=== PATIENT | male | born 1970 | race Caucasian/White ===

== ENCOUNTER 2025-05-26 15:08 | Emergency (ER) | payer MEDICAID, OTHER ==
[~2025-05-26] VITALS: Ht 177.8 cm; Wt 92.0 kg
--- NOTE | 2025-05-26 15:48 | ECG ---
[facility] Test Date: 2025-05-26 Test Time: 15:28:45 Pat Name: KRISH GUERRIER Department: ER Room: Gender: M Sales Account Manager: CHANTELL : 1970 Requested By: GIGI PAYNE Order Number: [id number] Reading MD: Measurements Intervals [place] Rate: 56 P: 9 CA: 138 QRS: 50 QRSD: 91 T: 40 QT: 445 QTc: 430 Interpretive Statements Sinus rhythm Please click the below link to view image of tracing.
--- NOTE | 2025-05-26 15:54 | ED.PDOC ---
History of Present Illness HPI Comments 55-year-old male presents with a chief complaint of heat exposure. Patient is experiencing generalized weakness, fatigue, nausea and vomiting. Patient reports that he was doing yard work and mentions that he had "a few beers last night as well". Patient is nauseated, but is not actively vomiting at this time. Patient is able to ambulate, but is choosing to use a wheelchair at this time. No other symptoms or modifying factors present at this time. Patient was hypertensive and bradycardic at arrival. Chief Complaint: Heat Exposure Time Seen by MD: 15:42 Reviewed Notes: Nurses Notes, Medications, Allergies Allergies: Coded Allergies: NO KNOWN ALLERGIES (Unverified , 05/26/25) Information Source: Patient Mode of Arrival: Ambulatory Severity: Moderate Timing: Hours Duration: Since onset Prehospital treatment: None Past Medical History PAST MEDICAL HISTORY: HTN, Denies Surgical History: Denies all surgeries Family History Family History: Reviewed,noncontributory to illness Social History Smoker: Non-Smoker Alcohol: Denies ETOH Use Drugs: Denies Drug Use Lives In: Home Constitutional: reports: fatigue, weakness; denies: chills, diaphoresis, fever, malaise, sweats, others EENTM: denies: blurred vision, double vision, ear bleeding, ear discharge, ear drainage, ear pain, ear ringing, eye pain, eye redness, hearing loss, mouth pa in, mouth swelling, nasal discharge, nose bleeding, nose congestion, nose pain, photophobia, tearing, throat pain, throat swelling, voice changes, others Respiratory: denies: cough, hemoptysis, orthopnea, SOB at rest, shortness of breath, SOB with excertion, stridor, wheezing, others Cardiovascular: denies: chest pain, dizzy spells, diaphoresis, Dyspnea on exertion, edema, irregular heart beat, left arm pain, lightheadedness, palpitations, PND, syncope, others Gastrointestinal: reports: abdominal pain, nausea, vomiting; denies: abdomen distended, blood streaked bowels, constipated, diarrhea, dysphagia, difficulty swallowing, hematemesis, melena, poor appetite, poor fluid intake, rectal bleeding, rectal pain, others Genitourinary: denies: burning, dysuria, flank pain, frequency, hematuria, incontinence, penile discharge, penile sore, pain, testicle pain, testicle swelling, urgency, others Neurological: denies: dizziness, fainting, headache, left sided numbness, left sided weakness, numbness, paresthesia, pre-existing deficit, right sided numbness, right sided weakness, seizure, speech problems, tingling, tremors, weakness, others Musculoskeletal: denies: back pain, gout, joint pain, joint swelling, muscle pain, muscle stiffness, neck pain, others Integumetry: denies: bruises, change in color, change in hair/nails, dryness, laceration, lesions, lumps, rash, wounds, others Allergic/Immunocompromised: denies: Difficulty Healing, Frequent Infections, Hives, Itching, others Hematologic/Lymphatic: denies: anemia, blood clots, easy bleeding, easy bruising, swollen glands, others Endocrine: denies: excessive hunger, excessive sweating, excessive thirst, excessive urination, flushing, intolerance to cold, intolerance to heat, unexplained weight gain, unexplained weight loss, others Psychiatric: denies: anxiety, bipolar disorder, depression, hopeless, panic disorder, schizophrenia, sleepless, suicidal, others All Other Systems: Reviewed and Negative Physical Exam General Appearance: Moderate Distress (Patient was in moderate distress due to generalized weakness at time of evaluation.), Normal HEENT: Normal ENT Inspection, Pharynx Normal, TMs Normal Neck: Full Range of Motion, Non-Tender, Normal, Normal Inspection Respiratory: Chest Non-Tender, Lungs Clear, No Accessory Muscle Use, No Respiratory Distress, Normal Breath Sounds Cardiovascular: Bradycardia, No Edema, No JVD, No Murmur, No Gallop, Normal Peripheral Pulses Breast Exam: Deferred Gastrointestinal: No Organomegaly, Non Tender, No Pulsatile Mass, Normal Bowel Sounds, Soft Genitalia: Deferred Pelvic: Deferred Rectal: Deferred Extremities: No calf tenderness, Normal capillary refill, Normal inspection, Non-tender, No pedal edema Musculoskeletal : Apperance: Normal Neurologic: Alert, No Motor Deficits, No Sensory Deficits Cerebellar Function: NOT DONE Reflexes: NOT DONE Skin: Dry, Normal Color, Warm Lymphatic: No Adenopathy Was a procedure done? Was a procedure done?: No Differential Dx Considerations may include: Dehydration, sepsis, electrolyte abnormality, UTI, acute coronary syndrome, sick sinus syndrome, hypertensive urgency X-Ray, Labs, Meds, VS Vital Signs Date Time Temp Pulse Resp B/P (MAP) Pulse Ox O2 Delivery O2 Flow Rate FiO2 05/26/25 18:54 97.4 55 18 170/100 (123) 97 97.4 05/26/25 16:50 55 16 95 Room Air* 0 21 05/26/25 16:42 55 20 184/80 (114) 100 05/26/25 15:30 97.9 65 18 189/119 (142) 100 97.9 150/109 (123) 05/26/25 15:28 56 Lab Test 05/26/25 15:36 05/26/25 15:22 Range/Units White Blood Count 10.5 4.4-10.8 10^3/uL Red Blood Count 4.49 L 4.5-5.90 10^6/uL Hemoglobin 14.5 13.5-17.5 g/dL Hematocrit 42.8 41.0-53.0 % Mean Corpuscular Volume 95.3 80.0-100.0 fL Mean Corpuscular Hemoglobin 32.3 H 28.0-32.0 pg Mean Corpuscular Hemoglobin Concent 33.9 32.0-36.0 g/dL Red Cell Distribution Width 13.1 11.8-14.3 % Platelet Count 272 140-450 10^3/uL Mean Platelet Volume 8.5 6.9-10.8 fL Neutrophils (%) (Auto) 76.9 37.0-80.0 % Lymphocytes (%) (Auto) 15.3 10.0-50.0 % Monocytes (%) (Auto) 6.4 0.0-12.0 % Eosinophils (%) (Auto) 0.9 0.0-7.0 % Basophils (%) (Auto) 0.5 0.0-2.0 % Neutrophils # (Auto) 8.1 1.6-8.6 10 ^3/uL Lymphocytes # (Auto) 1.6 0.4-5.4 10 ^3/uL Monocytes # (Auto) 0.7 0-1.3 10 ^3/uL Eosinophils # (Auto) 0.1 0-0.8 10 ^3/uL Basophils # (Auto) 0 0-0.2 10 ^3/uL Nucleated Red Blood Cells 0.0 % Sodium Level 144 136-145 mmol/L Potassium Level 4.1 3.5-5.1 mmol/L Chloride Level 109 H 98-107 mmol/L Carbon Dioxide Level 22 20-31 mmol/L Anion Gap 13 5-15 Blood Urea Nitrogen 18 9-23 mg/dL Creatinine 1.04 0.700-1.30 mg/dL Glomerular Filtration Rate Calc 86 >90 mL/min BUN/Creatinine Ratio 17.3 10.0-20.0 Serum Glucose 145 H 74-106 mg/dL Calcium Level 10.6 H 8.7-10.4 mg/dL Troponin I High Sensitivity < 3 L </=54 ng/L Urine Color Light-yellow Yellow Urine Clarity Clear Clear Urine pH 6.0 5.0-9.0 Urine Specific [place] 1.020 1.001-1.035 Urine Protein Negative Negative Urine Ketones 2+ H Negative Urine Blood Negative Negative /uL Urine Nitrite Negative Negative Urine Bilirubin Negative Negative Urine Urobilinogen Normal Negative mg/dL Urine Leukocyte Esterase Negative Negative /uL Urine RBC 5 0 - 3 /hpf Urine Microscopic WBC < 1 0-3 /HPF Urine Squamous Epithelial Cells Few <5 /hpf Urine Bacteria None seen None Seen /hpf Urine Hyaline Casts Few 0 - 2 /lpf Urine Glucose Normal Normal mg/dL Current Medications Medications (Trade) Dose Ordered Sig/Maximus Route Start Time Stop Time Status Last Admin Sodium Chloride 2,000 ml @ 1,000 mls/hr Q2H ONCE IV 05/26/25 16:00 05/26/25 17:59 DC 05/26/25 16:53 Multivitamins (Mvi Tab) 1 tab ONCE ONCE PO 05/26/25 16:00 05/26/25 16:01 DC 05/26/25 16:52 Ondansetron HCl (Zofran Po) 4 mg ONCE ONCE PO 05/26/25 16:00 05/26/25 16:01 DC 05/26/25 16:52 X-Ray, Labs, Meds, VS Comment All studies performed in the ED were evaluated by me personally. Serum studies and urinalysis was unremarkable for any systemic concerns. EKG revealed a sinus rhythm with a rate of 56, NM interval 138 and QT interval of 445. Normal EKG. Patient received 2 L of fluid as well as medication to address his nausea. Patient states he had good recovery in wanted to leave the facility. Advised the patient that his blood pressure was still elevated in his heart rate was still low. Advised that I would like to do further evaluation, but the patient stated he felt improved and wanted to go home. Patient left the facility before I could acquire an AMA form. Time of 1ST Reevaluation: 19:10 Reevaluation 1ST: Improved Consultation: PCP Patient Education/Counseling: Diagnosis, Treatment, Need For Follow Up Family Education/Counseling: Diagnosis, Treatment, No Family Present SEPSIS Sepsis Screen Recent Procedure: No On Antibiotic Therapy: No Respiratory Rate >20: No Heart Rate >90: No Temp<36 C (96.8 F) or >38.3 C: No SBP <90 or MAP <65 mmHG: No New Acute Mental Status Change: No Is the patient on CPAP, BIPAP,: No Physician Orders Heplock Iv (05/26/25 ) Vital Signs Date Time Temp Pulse Resp B/P (MAP) Pulse Ox O2 Delivery O2 Flow Rate FiO2 05/26/25 18:54 97.4 55 18 170/100 (123) 97 97.4 05/26/25 16:50 55 16 95 Room Air* 0 21 05/26/25 16:42 55 20 184/80 (114) 100 05/26/25 15:30 97.9 65 18 189/119 (142) 100 97.9 150/109 (123) 05/26/25 15:28 56 Laboratory Tests Test 05/26/25 15:36 White Blood Count 10.5 10^3/uL (4.4-10.8) Medications Medications Dose Ordered Sig/Mxaimus Route Start Time Stop Time Status Last Admin Dose Admin Multivitamins 1 tab ONCE ONCE PO 05/26/25 16:00 05/26/25 16:01 DC 05/26/25 16:52 Ondansetron HCl 4 mg ONCE ONCE PO 05/26/25 16:00 05/26/25 16:01 DC 05/26/25 16:52 Sodium Chloride 2,000 ml @ 1,000 mls/hr Q2H ONCE IV 05/26/25 16:00 05/26/25 17:59 DC 05/26/25 16:53 Departure 1 Departure Time of Disposition: 19:10 Impression: Primary Impression: Heat exposure Additional Impressions: Dehydration Hypertension Sinus bradycardia Disposition: 01 HOME / SELF CARE / HOMELESS Condition: Stable Additional Instructions: Advised patient utilize medication as needed for symptomatic relief. Additionally, patient has been advised to follow up with primary care provider for evaluation as well as discussions related to blood pressure and bradycardic concerns. e-Prescriptions Dicyclomine Hcl (BENTYL CAPSULE) 10 Mg Cp 1 CAP PO Q6HPRN, #20 CAP 0 Refills Prov: GIGI PAYNE PAC 05/26/25 Ondansetron Odt 4MG Tab (ZOFRAN PO) 4 Mg Tb 4 MG PO Q6HP PRN, #15 TAB ODT TAB-DISSOLVE IN MOUTH, THEN SWALLOW Prov: GIGI PAYNE PAC 05/26/25 Discharged With: Self, Relative Critical Care Note Critical Care Time?: No Stability Stability form required: No Heart Score Heart Score: Heart Score Response (Comments) Value History Slightly Suspicious 0 EKG Normal 0 Age 45-64 1 Risk Factors 1 or 2 risk factors 1 Troponin Normal limit 0 Total 2 I personally scribed for GIGI PAYNE PAC ([email or web address]) on 05/26/25 at 15:54. Electronically submitted by Wyatt Pierce ([email or web address]). GIGI PAYNE PAC May 26, 2025 15:54
[2025-05-26 16:28] LABS: Hematocrit 42.8 % (41.0-53.0); Hemoglobin 14.5 g/dL (13.5-17.5); Mean Corpuscular Hemoglobin 32.3 pg (28.0-32.0); Mean Corpuscular Volume 95.3 fL (80.0-100.0); Nucleated Red Blood Cells % 0.0 %
[2025-05-26 16:44] LABS: Potassium 4.1 mmol/L (3.5-5.1); Sodium 144 mmol/L (136-145)
[2025-05-26 16:45] LABS: Anion Gap 13 (5-15); Carbon Dioxide 22 mmol/L (20-31)
[2025-05-26 16:46] LABS: Calcium 10.6 mg/dL (8.7-10.4); Chloride 109 mmol/L (98-107)
[2025-05-26 16:50] VITALS: PULSE 55; RESP 16; O2SAT 95
[2025-05-26 16:51] LABS: BUN/Creatinine Ratio 17.3 (10.0-20.0); Blood Urea Nitrogen 18 mg/dL (9-23)
[2025-05-26] MEDS: MULTIPLE VITAMIN TAB PO ONE (16:52)
[2025-05-26] MEDS: ONDANSETRON ODT 4 MG TAB PO ONE (16:52)
[2025-05-26] MEDS: SODIUM CHLORIDE 0.9% 2,000 ML IV ONE (16:53)
[2025-05-26 16:56] LABS: Glucose 145 mg/dL (74-106)
[2025-05-26 17:07] LABS: Urine Protein, UAD Negative (Negative)
[2025-05-26 18:54] VITALS: BP 170/100; PULSE 55; RESP 18; TEMP 97.4; O2SAT 97
[2025-05-26] MEDS ORDERED: DICY10CA PO (19:12)
[2025-05-26] MEDS ORDERED: ZOFR4T PO (19:12)
== END 2025-05-26 19:14 | disposition home or self-care (01) ==
LOC: ER 15:08
DX: T67.8XXA Other effects of heat and light, initial encounter (principal); E86.0 Dehydration; I10 Essential (primary) hypertension; R00.1 Bradycardia, unspecified; X30.XXXA Exposure to excessive natural heat, initial encounter; Y93.89 Activity, other specified; Y92.89 Other specified places as the place of occurrence of the external cause; Y99.8 Other external cause status
CPT/HCPCS: 36415; 80048; 81001; 84484; 85025; 93005; 96360; 99284; J7030; Q0162